=== PATIENT | female | born 1960 | race Caucasian/White ===

== ENCOUNTER 2022-10-17 07:10 | Day surgery (SDC) | payer OTHER ==
[~2022-10-17] VITALS: Ht 162.6 cm; Wt 86.2 kg
[2022-10-17] MEDS ORDERED: LIDOCAINE 2% 100 MG/5 ML UJET TP ONE (08:00)
[2022-10-17] MEDS ORDERED: fentaNYL citrate 0.05 MG/ML VIAL ONE (08:00)
== END 2022-10-17 09:14 | disposition home or self-care (01) ==
LOC: MDS 07:10 → MMU 07:15 → MDS 09:14
PROVIDERS: ATTEND Internal Medicine Gastroenterology
DX: Z12.11 Encounter for screening for malignant neoplasm of colon (principal); K63.5 Polyp of colon; K57.30 Diverticulosis of large intestine without perforation or abscess without bleeding; I10 Essential (primary) hypertension; E78.5 Hyperlipidemia, unspecified; Z90.89 Acquired absence of other organs; Z79.899 Other long term (current) drug therapy
CPT/HCPCS: 45385; J3010